=== PATIENT | male | born 1990 | race Caucasian/White ===

== ENCOUNTER 2016-11-19 07:17 | Emergency (ER) | payer BC ==
[2016-11-19 07:54] VITALS: BP 115/71
== END 2016-11-19 08:28 | disposition left against medical advice (07) ==
LOC: UCCORT 07:17
DX: R68.83 Chills (without fever) (principal); Z53.21 Procedure and treatment not carried out due to patient leaving prior to being seen by health care provider

== ENCOUNTER 2016-11-29 14:06 | Emergency (ER) | payer BC ==
[2016-11-29 14:35] VITALS: BP 129/73
--- NOTE | 2016-11-29 14:50 | UC ---
Abdominal Pain Male HPI - History of Current Complaint Chief Complaint: UCGeneralIllness Stated Complaint: LEFT SIDE RIB PAIN (TESTED + FOR MONO) Time Seen by Provider: 11/29/16 14:36 Hx Obtained From: Patient Onset/Duration: Sudden Onset - Yesterday at work., Lasting Days - 1, Still Present - but a little better. Severity Initially: Moderate Severity Currently: Mild Location: Discrete At: LUQ - on the ribs Character: Aching, Dull Aggravating Factor(s):: Movement - and burping Alleviating Factor(s): Rest Associated Signs And Symptoms: Positive: Chest Pain, Nausea. Negative: Vomiting , Diarrhea - Risk Factors Testicular Torsion: Negative Cardiac Risk Factors: Negative - Allergies/Home Medications Allergies/Adverse Reactions: Allergies Allergy/AdvReac Type Severity Reaction Status Date / Time No Known Allergies Allergy Verified 11/29/16 14:35 PMH/Surg Hx/FS Hx/Imm Hx Other History Of: Negative For: HIV - Surgical History Surgical History: Yes Surgery Procedure, Year, and Place: APPENDIX,WISDOM TEETH REMOVAL - Family History Known Family History: Positive: Cardiac Disease, Hypertension, Diabetes - Social History Occupation: Employed Full-time Lives: With Family Alcohol Use: Occasionally Substance Use Type: None Smoking Status (MU): Never Smoked Tobacco Have You Smoked in the Last Year: No Review of Systems Cardiovascular: Chest Pain - in the lower left ribs. All Other Systems Reviewed And Are Negative: Yes Physical Exam Triage Information Reviewed: Yes Appearance: Well-Appearing, No Pain Distress, Well-Nourished Vital Signs: Initial Vital Signs Temp 98.5 F 11/29/16 14:31 Pulse 90 11/29/16 14:31 Resp 16 11/29/16 14:31 BP 129/73 11/29/16 14:31 Pulse Ox 99 11/29/16 14:31 Vital Signs Reviewed: Yes Eyes: Positive: Conjunctiva Clear ENT Exam: Normal Neck exam: Normal Respiratory Exam: Normal Cardiovascular Exam: Normal Abdomen Description: Positive: No Organomegaly. Negative: Nontender - LUQ Bowel Sounds: Positive: Present Musculoskeletal Exam: Normal Neurological Exam: Normal Psychological Exam: Normal Skin Exam: Normal Abd Pain Male Course/Dx - Differential Dx/Clinical Impression Differential Diagnosis/HQI/PQRI: Appendicitis, Diverticulitis, Hepatitis Provider Diagnoses: Left Upper Quadrant Abdominal pain. Discharge - Discharge Plan Condition: Stable Disposition: HOME Patient Education Materials: Abdominal Pain (ED), Mononucleosis (ED) Additional Instructions: If you get worsening pain go straight to the ER.
== END 2016-11-29 15:03 | disposition home or self-care (01) ==
LOC: UCCORT 14:06
DX: R10.12 Left upper quadrant pain (principal)
CPT/HCPCS: 99211; G0463

== ENCOUNTER 2017-07-11 21:30 | Emergency (ER) | payer BC ==
[2017-07-11 21:45] VITALS: BP 145/84
[2017-07-11] MEDS ORDERED: Penicillin VK TAB* 250 MG PO ONE (22:01)
--- NOTE | 2017-07-11 22:02 | UC ---
Dental HPI - HPI Summary HPI Summary: C/O right upper tooth pain. Had URI last week. Worsening pain now localized in 1 tooth. No cough residual. Positive seasonal allergies. - History of Current Complaint Chief Complaint: UCDentalProblem Stated Complaint: DENTAL Time Seen by Provider: 07/11/17 21:54 Hx Obtained From: Patient Onset/Duration: Gradual Onset, Lasting Weeks - 1, Worse Since - today Severity: Moderate Pain Intensity: 7 Aggravating Factor(s): Chewing - Allergies/Home Medications Allergies/Adverse Reactions: Allergies Allergy/AdvReac Type Severity Reaction Status Date / Time No Known Allergies Allergy Verified 07/11/17 21:40 PMH/Surg Hx/FS Hx/Imm Hx Previously Healthy: Yes Other History Of: Negative For: HIV - Surgical History Surgical History: Yes Surgery Procedure, Year, and Place: APPENDIX,WISDOM TEETH REMOVAL - Family History Known Family History: Positive: Cardiac Disease, Hypertension, Diabetes - Social History Occupation: Employed Full-time Lives: With Family Alcohol Use: Occasionally Substance Use Type: None Smoking Status (MU): Never Smoked Tobacco Have You Smoked in the Last Year: No Review of Systems ENT: Dental Pain, Sinus Pain/Tenderness - ?? Is Patient Immunocompromised?: No All Other Systems Reviewed And Are Negative: Yes Physical Exam Triage Information Reviewed: Yes Appearance: Well-Appearing, Well-Nourished, Pain Distress - mild Vital Signs: Initial Vital Signs Temp 98.5 F 07/11/17 21:41 Pulse 78 07/11/17 21:41 Resp 16 07/11/17 21:41 BP 145/84 07/11/17 21:41 Pulse Ox 100 07/11/17 21:41 Vital Signs Reviewed: Yes Eyes: Positive: Conjunctiva Clear ENT: Positive: Pharynx normal, TMs normal Dental: Positive: Percussion Tenderness @ - #25, Cellulitis @ - #25 Neck exam: Normal Respiratory Exam: Normal Cardiovascular Exam: Normal Musculoskeletal Exam: Normal Neurological Exam: Normal Psychological Exam: Normal Skin Exam: Normal Dental Complaint Course/Dx - Differential Dx/Diagnosis Differential Diagnosis/Dx: Dental Abscess, Dental Caries, Fractured Tooth Provider Diagnoses: Dental abscess Discharge - Discharge Plan Condition: Stable Disposition: HOME Prescriptions: Penicillin VK 500 MG TAB(NF) [Penicillin VK 500 mg Tab] 500 mg PO QID #40 tab Patient Education Materials: Dental Abscess (ED), Penicillin V (By mouth) Referrals: Niziol,Mino S, MD [Primary Care Provider] -
== END 2017-07-11 22:19 | disposition home or self-care (01) ==
LOC: UCCORT 21:30
DX: K04.7 Periapical abscess without sinus (principal)
CPT/HCPCS: 99212; A9270-GY; G0463

== ENCOUNTER 2018-12-06 12:23 | Emergency (ER) | payer BC, OTHER ==
[2018-12-06 13:43] VITALS: BP 144/81
[2018-12-06] MEDS ORDERED: Tetracaine 0.5% OPTH.SOL 4 ML* 1 DROP BTL ONE (13:44)
[2018-12-06] MEDS ORDERED: Fluorescein Sodium TOPICAL* 1 MG TEST STRIP OPHTHALMIC ONE (13:44)
--- NOTE | 2018-12-06 13:55 | UC ---
Eye Complaint HPI - HPI Summary HPI Summary: per triage, c/o bilateral eye itchiness, redness, outer lid swelling for the past 2 days following helping a friend move out of a place that had mold in it. Also states nasal congestion and runny nose with sneezing. Pt does wear contacts and has switched to wearing glasses since eye issues. Denies fever. Pt denies eye pain and visual loss. He denies fever and head cold. He did self tx with leftover antibiotic eye drops with no relief. - History of Current Complaint Chief Complaint: UCEye Stated Complaint: B/L EYE COMPLAINT Time Seen by Provider: 12/06/18 13:33 Hx Obtained From: Patient Pain Intensity: 1 Aggravating Factor(s): Nothing Alleviating Factor(s): Nothing Associated Signs And Symptoms: Positive: Swelling - "from being tired". Negative: Photophobia, Drainage (Purulent), Vision Impairment Bilateral, Fever - Risk Factors Penetrating Injury Risk Factor: Negative Globe Rupture Risk Factors: Negative Optic Artery Occlusion Risk Factors: Negative - Allergies/Home Medications Allergies/Adverse Reactions: Allergies Allergy/AdvReac Type Severity Reaction Status Date / Time No Known Allergies Allergy Verified 07/11/17 21:40 Home Medications: Home Medications Abx Eye Drops 2 drop BOTH EYES Q4HR PRN 12/06/18 [History] Ibuprofen TAB* [Advil TAB*] 800 mg PO Q6H PRN 12/06/18 [History Confirmed ] PMH/Surg Hx/FS Hx/Imm Hx Previously Healthy: Yes Other History Of: Negative For: HIV - Surgical History Surgical History: Yes Surgery Procedure, Year, and Place: APPENDIX,WISDOM TEETH REMOVAL - Family History Known Family History: Positive: Cardiac Disease, Hypertension, Diabetes - Social History Occupation: Employed Full-time Alcohol Use: Weekly Substance Use Type: None Smoking Status (MU): Never Smoked Tobacco Have You Smoked in the Last Year: No Review of Systems All Other Systems Reviewed And Are Negative: No Constitutional: Negative: Fever, Chills Skin: Negative: Rash Eyes: Positive: Eye Redness. Negative: Blurred Vision, Drainage, Photophobia ENT: Positive: Sinus Congestion - with sneezing. Negative: Sore Throat, Ear Ache Neurological: Negative: Headache Physical Exam Triage Information Reviewed: Yes Appearance: Well-Appearing Vital Signs: Initial Vital Signs Temp 98 F 12/06/18 13:35 Pulse 90 12/06/18 13:35 Resp 16 12/06/18 13:35 BP 144/81 12/06/18 13:35 Pulse Ox 96 12/06/18 13:35 Vital Signs Reviewed: Yes Eyes: Positive: Other: - No auricular adenopathy. No periorbital edema or rash. PERRL, EOMI. Conjunctiva mildly injected x2. No discharge. AC's clear. Lids everted and no FB's. Tetracaine and stain both eyes and no uptake. Itching resolved with tetracaine. ENT: Positive: Pharynx normal, TMs normal. Negative: Nasal drainage, Sinus tenderness Neck: Positive: Supple, No Lymphadenopathy Neurological: Positive: Alert Psychological: Positive: Age Appropriate Behavior Skin Exam: Normal Skin: Negative: Rashes Eye Complaint Course/Dx - Differential Dx/Diagnosis Differential Diagnosis/HQI/PQRI: Other - no corneal abrasions, dendrites or ulcerations. no concern bacterial conjunctivitis/. no periorbital swelling or rash. Provider Diagnosis: Allergic conjunctivitis, Environmental allergies Discharge - Sign-Out/Discharge Documenting (check all that apply): Patient Departure All imaging exams completed and their final reports reviewed: No Studies - Discharge Plan Condition: Stable Disposition: HOME Patient Education Materials: Allergies (ED), Conjunctivitis (ED) Referrals: Mino Sands MD [Primary Care Provider] - 4 Days Dominga Fernandez MD [Medical Doctor] - Additional Instructions: FOLLOW UP WITH DR FERNANDEZ IF NOT BETTER BY THE END OF THIS WEEK OR SOONER IF WORSE. START AN ALLERGY MEDICATION SUCH ZYRTEC OR CLARITIN. USE PER LABEL. DISPOSE OF LAST CONTACTS AND NO CONTACT USE UNTIL CLEARED. - Billing Disposition and Condition Condition: STABLE Disposition: Home
== END 2018-12-06 14:07 | disposition home or self-care (01) ==
LOC: UCCORT 12:23
DX: H10.10 Acute atopic conjunctivitis, unspecified eye (principal); T78.40XA Allergy, unspecified, initial encounter
CPT/HCPCS: 99212; A9270-GY; G0463

== ENCOUNTER 2019-07-25 18:02 | Emergency (ER) | payer SELFPAY ==
[2019-07-25 18:57] VITALS: BP 129/81
--- NOTE | 2019-07-25 19:44 | UC ---
Back Pain HPI - HPI Summary HPI Summary: 28-year-old male presents with complaints of onset of right lower back pain this afternoon at approximately 3:00 PM when he was helping a coworker lift a heavy piece of equipment. Describes pain as a constant ache that worsens and becomes more sharp in nature with twisting. Pain is nonradiating. Denies fever , chills, urinary symptoms, weakness, numbness, or tingling in the lower extremities, loss of bowel or bladder control. - History of Current Complaint Chief Complaint: UCBackPain Stated Complaint: BACK INJURY Time Seen by Provider: 07/25/19 19:11 Hx Obtained From: Patient Pain Intensity: 6 - Allergies/Home Medications Allergies/Adverse Reactions: Allergies Allergy/AdvReac Type Severity Reaction Status Date / Time No Known Allergies Allergy Verified 07/25/19 18:56 Home Medications: Home Medications Cyclobenzaprine HCl 10 mg PO Q8HR PRN #21 tablet 07/25/19 [Rx] Naproxen [Naproxen 500 mg tab] 500 mg PO Q12HR #30 tablet 07/25/19 [Rx] PMH/Surg Hx/FS Hx/Imm Hx Previously Healthy: Yes - Denies significant PMH Other History Of: Negative For: HIV - Surgical History Surgical History: Yes Surgery Procedure, Year, and Place: APPENDIX,WISDOM TEETH REMOVAL - Family History Known Family History: Positive: Cardiac Disease, Hypertension, Diabetes - Social History Occupation: Employed Full-time Lives: With Family Alcohol Use: Occasionally Substance Use Type: None Smoking Status (MU): Never Smoked Tobacco Have You Smoked in the Last Year: No Review of Systems All Other Systems Reviewed And Are Negative: Yes Constitutional: Negative: Fever, Chills Skin: Negative: Rash Respiratory: Positive: Negative Cardiovascular: Positive: Negative Gastrointestinal: Positive: Negative Genitourinary: Positive: Negative Musculoskeletal: Positive: Other: - See HPI Neurological/Mental Status: Negative: Weakness, Paresthesia, Numbness Psychological: Positive: Negative Is Patient Immunocompromised?: No Physical Exam - Summary Physical Exam Summary: GENERAL APPEARANCE: Well developed, well nourished, alert and cooperative, and appears to be in no acute distress. CARDIAC: Normal S1 and S2. No S3, S4 or murmurs. Rhythm is regular. There is no peripheral edema, cyanosis or pallor. Extremities are warm and well perfused. Capillary refill is less than 2 seconds. Peripheral pulses intact. LUNGS: Clear to auscultation without rales, rhonchi, wheezing or diminished breath sounds. ABDOMEN: Positive bowel sounds. Soft, nondistended, nontender. No guarding or rebound. No masses or hepatosplenomegally. MUSKULOSKELETAL: ROM intact to all extremities. No joint erythema or tenderness. Normal muscular development. Normal gait. BACK: No midline spinal deformity or tenderness. Mild right lumbar paraspinous soft tissue tenderness without muscular spasm. NEUROLOGICAL: Strength and sensation symmetric and intact throughout. SKIN: Skin normal color, texture and turgor with no lesions or eruptions. Triage Information Reviewed: Yes Vital Signs: Initial Vital Signs Temp 98.5 F 07/25/19 18:50 Pulse 80 07/25/19 18:50 Resp 14 07/25/19 18:50 BP 129/81 07/25/19 18:50 Pulse Ox 99 07/25/19 18:50 Vital Signs Reviewed: Yes Back Pain Course/Dx - Course Course Of Treatment: 28-year-old male presents with complaints of onset of right lower back pain this afternoon at approximately 3:00 PM when he was helping a coworker lift a heavy piece of equipment. Describes pain as a constant ache that worsens and becomes more sharp in nature with twisting. Pain is nonradiating. Denies fever , chills, urinary symptoms, weakness, numbness, or tingling in the lower extremities, loss of bowel or bladder control. Afebrile. Vital signs stable. On exam patient had no midline spinal deformity or tenderness, mild right lumbar paraspinous soft tissue tenderness without muscular spasm, strength and sensation was intact to the lower extremites, gait normal, and otherwise unremarkable exam. Discussed with the patient that his history and exam are consistent with a low back strain and recommending conservative treatment with naproxen 500 mg 1 tablet every 12 hours for the next 5 days then every 12 hours as needed, cyclobenzaprine 10 mg every 8 hours as needed for severe pain or spasm, and heat therapy. He is to follow-up with occupational medicine in 3-5 days if symptoms are not improving. Anticipatory guidance and warning signs reviewed with the patient. Verbalized understanding and agrees with plan of care. - Differential Dx/Diagnosis Differential Diagnosis/HQI/PQRI: Herniated Disc, Strain Provider Diagnosis: Low back strain Discharge ED - Sign-Out/Discharge Documenting (check all that apply): Patient Departure All imaging exams completed and their final reports reviewed: No Studies - Discharge Plan Condition: Stable Disposition: HOME Prescriptions: Cyclobenzaprine HCl 10 mg PO Q8HR PRN #21 tablet PRN Reason: Spasms - Back Naproxen [Naproxen 500 mg tab] 500 mg PO Q12HR #30 tablet Patient Education Materials: Low Back Strain (ED) Referrals: Mino Sands MD [Primary Care Provider] - Sherwin Bansal MD [Medical Doctor] - 3 Days (Follow up in 3-5 days if symptoms are not improving. Call for appointment.) Additional Instructions: Your history and exam are consistent with a low back strain. Take naproxen 500 mg 1 tablet every 12 hours for the next 5 days and may take every 12 hours as needed for pain. Take cyclobenzaprine 10 mg 1 tablet every 8 hours as needed for severe pain or spasm. This medication will cause drowsiness a do not take and drive or operate machinery. Apply a heating pad to the affected area for 15-20 minutes 3-4 times a day to help with the pain and to relax the muscles. Follow-up with occupational medicine in 3-5 days if symptoms are not improving. Call for an appointment. Seek immediate medical attention in the emergency room if you develop severe pain that is not managed with the pain medication, have numbness, tingling, or weakness of the legs, he lose control of her bowel or bladder, or have any worsening of symptoms. - Billing Disposition and Condition Condition: STABLE Disposition: Home
== END 2019-07-25 20:12 | disposition home or self-care (01) ==
LOC: UCEAST 18:02
DX: S39.012A Strain of muscle, fascia and tendon of lower back, initial encounter (principal); X50.9XXA Other and unspecified overexertion or strenuous movements or postures, initial encounter; Y92.9 Unspecified place or not applicable
CPT/HCPCS: 99212; G0463